=== PATIENT | female | born 1970 | race American Indian/Alaskan Native ===

== ENCOUNTER 2016-06-26 00:53 | Observation (INO) ==
--- NOTE | 2016-06-26 04:08 | Emergency Department Note ---
I, Olivia Valdez, am scribing for, and in the presence of, Mainor Dahl MD 01: 59. IHesham Kevin Lee, MD, personally performed the services described in this documentation, ascribed by Olivia Valdez in my presence, and it is both accurate and complete 408 . Arrival - Arrival Chief Complaint: Non-Specific Stated Complaint: RIGHT ARM NUMBNESS ED Nursing Triage Note: Patient is a transfer from [facility] for further evaluation of left arm and big toe numbness. CT is in xray. Mode of Arrival: Stretcher Limitations: No Limitations Source: Patient - History of Present Illness HPI Narrative: Pt is a 45 y/o female who came to ED by EMS from [facility] for further evaluation of left sided numbness and tingling that started yesterday. Pt notes she had weakness with sxs but now is resolved. Pt reports having mild numbness and tingling in left arm currently in ED. Pt's labs from [facility] are listed below: WBC: 4.5 CT head without contrast was also administered with nml results. Hemo.5 Lymphs: 30.8 PT: 9.8 INR: 0.95 Mean Nml: 10.3 BUN: 17 Sodium: 138 Potassium: 3.6 CO2: 27.3 CPK: 69.00 CK-MB: 0.4 Troponin: .08 Glucose: 267 Calcium: 8.4 Chloride: 102 EST GFR: >60 Myoglob: 28 Creatinine: .8 PBNP: 114.2 Onset (ago): hour(s) Consistency: constant Severity: moderate Severity scale (1-10): 5 Quality: other (numbness) Date of Last Menstrual Period: hysterectomy Allergies/Adverse Reactions: Allergies Allergy/AdvReac Type Severity Reaction Status Date / Time Erythromycin Base Allergy Severe RASH Verified 05/10/15 15:51 Home Medications: Home Medications Medication Instructions Recorded Confirmed Type Gabapentin Cap/Tab [Neurontin 600 mg PO BID 05/10/15 06/15/15 History Cap/Tab] Indomethacin Cap [Indocin Cap] 25 mg PO TID #12 capsule NS 05/10/15 06/15/15 Rx Insulin Detemir [Levemir FlexPen] 10 unit SUBCUT QAM 05/10/15 06/15/15 History Insulin Detemir [Levemir FlexPen] 30 unit SUBCUT BEDTIME 05/10/15 06/15/15 History Lisinopril 20 mg PO DAILY 05/10/15 06/15/15 History Metoprolol Succinate Xl [Toprol Xl] 25 mg PO DAILY 05/10/15 06/15/15 History Tizanidine HCl [Zanaflex] 2 mg PO Q6H #16 capsule 05/10/15 06/15/15 Rx glyBURIDE [Diabeta] 10 mg PO BID W/MEALS 05/10/15 06/15/15 History Gemfibrozil 600 mg PO BID 06/14/15 06/14/15 History Lisinopril 20 mg PO DAILY 06/14/15 06/14/15 History Metoprolol Succinate Xl [Toprol Xl] 25 mg PO DAILY 06/14/15 06/14/15 History glyBURIDE [Diabeta] 10 mg PO BID W/MEALS 06/14/15 06/14/15 History Review of System - Review of System 12 point system: reviewed and no additional remarkable complaints except as stated - Review of System Constitutional: Absent: chills, fever Respiratory: Absent: respiratory distress Cardiovascular: Absent: chest pain Gastrointestinal: Absent: abdominal pain Musculoskeletal: Absent: arm pain, leg pain, neck pain Skin: Absent: rash Neurological: Present: numbness (in left arm), paresthesias (great left toe) Medical,Surgical,& Family Hx - Medical History Cardio: History of: Hypertension Psychological: History of: Depression - Social History Smoking Status: Never smoker Frequency of Alcohol Use: None Type of Drug Use: None Exam Vital Signs: Vital Signs Temperature 97.1 F L 06/26/16 00:55 Pulse Rate 77 06/26/16 00:55 Respiratory Rate 20 06/26/16 00:55 Blood Pressure 132/88 06/26/16 00:55 O2 Sat by Pulse Oximetry 97 06/26/16 00:55 - General General appearance: alert, in no apparent distress - Head Head exam: Present: atraumatic, normocephalic - Eye Eye exam: Present: PERRL, EOMI - ENT ENT exam: Present: mucous membranes moist. Absent: mucous membranes dry - Neck Neck exam: Present: full ROM. Absent: tenderness - Chest Chest inspection: Present: symmetric chest wall rise. Absent: tenderness - Respiratory Respiratory exam: Present: normal lung sounds bilaterally. Absent: respiratory distress - Cardiovascular Cardiovascular exam: Present: regular rate, normal rhythm, normal heart sounds - Abdominal Exam Abdominal exam: Present: soft. Absent: tenderness - Extremities Exam Extremities exam: Present: full ROM. Absent: tenderness, pedal edema - Neurological Exam Neurological exam: Present: alert, oriented X3, CN II-XII intact. Absent: motor sensory deficit - Psychiatric Psychiatric exam: Present: normal affect, normal mood - Skin Skin exam: Present: warm, dry Results - Labs Lab Results: I have reviewed the patients labs (from [facility]) Disposition Clinical Impression: TIA (transient ischemic attack) Case discussed with: patient Disposition: Still a Patient Condition: Stable
--- NOTE | 2016-06-26 04:14 | Hospitalist History & Physical ---
History of Present Illness Chief complaint: Left and left leg numbness History of present illness: Pt is a 45 y/o female who came to ED by EMS from [facility] for further evaluation of left sided numbness and tingling that started yesterday. Pt notes she had weakness with sxs but now is resolved. Pt reports having mild numbness and tingling in left arm currently in ED. she is also reporting a lot of social stressors surrounding the fact that she is forced to take care of her grandchildren whose mother has basically left them there and walked away. Patient denies having had these symptoms before. Does have history of coronary artery disease history of diabetes and history of hypertension The symptoms that she presented with to the emergency room have since subsided she is able to move her left arm she does not feel any better sensation in the arm does not feel in the weakness of the leg but the big toe is cold and "numb. Able to move her left lower extremity too. Speech is not compromised. Home Medications Medication Instructions Recorded Confirmed Type Gabapentin Cap/Tab [Neurontin 600 mg PO BID 05/10/15 06/15/15 History Cap/Tab] Indomethacin Cap [Indocin Cap] 25 mg PO TID #12 capsule NS 05/10/15 06/15/15 Rx Insulin Detemir [Levemir FlexPen] 10 unit SUBCUT QAM 05/10/15 06/15/15 History Insulin Detemir [Levemir FlexPen] 30 unit SUBCUT BEDTIME 05/10/15 06/15/15 History Lisinopril 20 mg PO DAILY 05/10/15 06/15/15 History Metoprolol Succinate Xl [Toprol Xl] 25 mg PO DAILY 05/10/15 06/15/15 History Tizanidine HCl [Zanaflex] 2 mg PO Q6H #16 capsule 05/10/15 06/15/15 Rx glyBURIDE [Diabeta] 10 mg PO BID W/MEALS 05/10/15 06/15/15 History Gemfibrozil 600 mg PO BID 06/14/15 06/14/15 History Lisinopril 20 mg PO DAILY 06/14/15 06/14/15 History Metoprolol Succinate Xl [Toprol Xl] 25 mg PO DAILY 06/14/15 06/14/15 History glyBURIDE [Diabeta] 10 mg PO BID W/MEALS 06/14/15 06/14/15 History Allergies Allergy/AdvReac Type Severity Reaction Status Date / Time Erythromycin Base Allergy Severe RASH Verified 05/10/15 15:51 Medical,Surgical,& Family Hx - Medical History Cardio: History of: CAD, Hypertension Psychological: History of: Depression Endocrine: History of: Diabetes Mellitus (NIDDM) - Social History Smoking Status: Never smoker Frequency of Alcohol Use: None Type of Drug Use: None 12 point system: reviewed and no additional remarkable complaints except as stated (Patient states that she no longer has the numbness of the left upper extremity. She is able to talk to me in full statements without any limitation is not in any distress at this point) Exam - Constitutional Vitals: Period Temp Pulse Resp BP Sys/Alarcon Pulse Ox Last 24 Hr 97.1 F-97.1 F 77-77 20-20 132-132/88-88 97 General appearance: over weight, other (He is slightly older than stated age) - Head Head exam: Present: normocephalic, atraumatic - Eye Eye exam: Present: EOMI, other (There is clear no conjunctival petechia) Pupils: Present: JAYLEEN - ENT ENT exam: Present: normal oropharynx - Neck Neck exam: Present: other (Neck is supple midline trachea no JVD or bruits and neck) - Respiratory Respiratory exam: Present: clear to auscultation bilaterally, other (No wheezing no rales no rhonchi) - Cardiovascular Cardiovascular exam: Present: regular rate and rhythm (No gallops no murmur), other (No gallops no murmur) - GI/Abdominal GI/Abdominal exam: Present: normal bowel sounds, other (Soft slightly rotund no obvious hepatosplenomegaly) - Extremities Exam Extremities exam: Present: full ROM, other (Good handgrip on the left good coordination can move left lower extremity without any limitation) - Back Exam Back exam: Present: other (Back is symmetric) - Neurological Exam Neurological exam: Present: alert, oriented X3, CN II-XII intact, other (No focal neurologic deficit despite the presenting history) - Psychiatric Psychiatric exam: Present: normal affect, normal mood - Skin Skin exam: Present: normal color, warm, dry
--- NOTE | 2016-06-26 07:32 | Ultrasound Report ---
Referring physician: Kamari Painting Exam: Carotid ultrasound Date: June 26, 2016 Comparison: None Reason: TIA Technique: Duplex scan of the carotid arteries was performed using B-Mode/grayscale imaging and Doppler spectral analysis and color flow. Ultrasound images were captured and stored. Findings: There is mild calcified plaque at the carotid bifurcations. The right ICA measures 0.42 cm in diameter, and the left ICA measures 0.40 cm in diameter. The peak systolic velocities are as follows: Right CCA: 68 cm/s Right proximal ICA: 67 cm/s Right distal ICA: 91 cm/s Right ECA: 81 cm/s Left CCA: 56 cm/s Left proximal ICA: 54 cm/s Left distal ICA: 81 cm/s Left ECA: 73 cm/s The peak systolic ICA/CCA velocity ratios are as follows: 1.3 on the right and 1.5 on the left. Antegrade flow is present within both vertebral arteries. Impression: 1. Less than 50% stenosis of both cervical internal carotid arteries. 2. The Society of Radiologists in Ultrasound consensus conference criteria was used. The Ultrasound images were captured and stored. PROCEDURE INTERPRETED AT [facility] DEPARTMENT OF RADIOLOGY Final Report Signed by: Dr. Faye Wood
[2016-06-26] MEDS: INSULIN GLARGINE 100 UNIT/ML SUBCUT SCH (08:57)
[2016-06-26] MEDS: GEMFIBROZIL 600 MG TABLET PO SCH ×2 (08:57→20:51)
[2016-06-26] MEDS: glyBURIDE 5 MG TABLET PO SCH ×2 (08:57→16:25)
[2016-06-26] MEDS: METOPROLOL SUCCINATE XL 25 MG TABLET PO SCH (08:57)
[2016-06-26] MEDS: LISINOPRIL 20 MG TABLET PO SCH (08:58)
[2016-06-26] MEDS ORDERED: GLUCAGON 1 MG VIAL IM PRN (09:41)
[2016-06-26] MEDS ORDERED: DEXTROSE 50% 25 GM/50 ML VIAL IV PRN (09:41)
[2016-06-26] MEDS: INSULIN LISPRO 100 UNIT/ML SUBCUT SCH ×3 (11:41→20:53)
[2016-06-26] MEDS ORDERED: ACETAMINOPHEN 325 MG TABLET PO PRN (13:45)
--- NOTE | 2016-06-26 13:56 | Magnetic Resonance Report ---
Referring physician: Kamari Painting Exam: MRI cervical spine with and without contrast Date: June 26, 2016 Comparison: None Reason: Left arm pain, paresthesia Technique: MRI of the cervical spine was performed with and without the use of 15 cc of Dotarem IV contrast. Obtained precontrast sequences include sagittal T2, sagittal STIR, sagittal T1, axial T2, axial T1 and axial T2* gradient sequences. Postcontrast axial and sagittal T1 fat-sat sequences were also acquired. A 1.2 Soraya open magnet was used. Findings: The cervical vertebral bodies are normal in height, and sagittal alignment is within normal limits. There is multilevel disc desiccation, and minimal disc space narrowing is seen at C4-C5. The visualized spinal cord demonstrates normal signal and size. At C2-C3, there is mild left neuroforaminal narrowing secondary to uncovertebral hypertrophy. No spinal canal stenosis is seen. At C3-C4, there is a small broad-based disc posterior disc protrusion in the left paracentral region and uncovertebral hypertrophy. This minimally displaces the spinal cord and produces narrowing of the left lateral recess. There is mild overall narrowing of the spinal canal, moderate left neuroforaminal narrowing and mild right neuroforaminal narrowing. At C4-C5, there is a mild diffuse posterior disc bulge, uncovertebral hypertrophy uncovertebral hypertrophy and slight prominence of the ligamentum flavum. This produces mild narrowing of the spinal canal, mild left neuroforaminal narrowing and moderate right neuroforaminal narrowing. At C5-C6, there is a mild diffuse posterior disc bulge, uncovertebral hypertrophy and mild prominence of the ligamentum flavum. This produces mild overall narrowing of the spinal canal but no significant neuroforaminal narrowing. At C6-C7, there is a mild diffuse posterior disc bulge, uncovertebral hypertrophy and slight prominence of the ligamentum flavum. This produces minimal overall narrowing of the spinal canal, mild right neuroforaminal narrowing and moderate left neuroforaminal narrowing. At C7-T1, No spinal canal stenosis or neuroforaminal narrowing is identified. No suspicious enhancement is seen. There is diffuse mucosal thickening within both maxillary sinuses. Impression: Multilevel degenerative change at the cervical spine as described above. PROCEDURE INTERPRETED AT [facility] DEPARTMENT OF RADIOLOGY Final Report Signed by: Dr. Faye Wood
--- NOTE | 2016-06-26 14:39 | ECHO Report ---
Nelly Calabrese Exam Date: 06/26/2016 09:20 Referring Physician: Technologist: Scotty CALL Age: 45 Ht (in): Wt (lb): Gender: F Exam Location: [facility] Echo Indications: TIA, Chest pain BP: / HR: Rhythm: Sinus Technical Quality: Technically difficult study IMPRESSIONS Technically difficult study. EF 55 %. Normal right ventricular size. Normal right atrial size. Normal left atrial size. Morphologically normal mitral valve. No mitral valve regurgit No aortic valve regurgitation. Aortic valve sclerosis. Morphologically normal tricuspid valve. PAP35- 40 mmHG. Morphologically normal pulmonic valve. No pericardial effusion. Normal size aortic root and proximal ascending aorta. No LV or LA clot seen. MEASUREMENTS (Male / Female) Normal Values 2D ECHO LV Diastolic Diameter PLAX 4.4 cm 4.2 - 5.9 / 3.9 - 5.3 cm LV Systolic Diameter PLAX 3.0 cm LV Fractional Shortening PLAX 31.5 % IVS Diastolic Thickness 1.2 cm 0.6 - 1.0 / 0.6 - 0.9 cm LVPW Diastolic Thickness 1.1 cm 0.6 - 1.0 / 0.6 - 0.9 cm RV Internal Dim ED PLAX 2.3 cm Aortic Root Diameter 2.9 cm LA Systolic Diameter LX 3.2 cm 3.0 - 4.0 / 2.7 - 3.8 cm DOPPLER TR Peak Velocity 111.0 cm/s TR Peak Gradient 4.9 mmHg FINDINGS Left Ventricle EF 55 %. Right Ventricle Normal right ventricular size. Right Atrium Normal right atrial size. Left Atrium Normal left atrial size. Mitral Valve Morphologically normal mitral valve. No mitral valve regurgitation. Aortic Valve Aortic valve sclerosis. No aortic valve regurgitation. Tricuspid Valve Mild tricuspid valve regurgitation. Morphologically normal tricuspid valve.PAP35- 40 mmHG. Pulmonic Valve Morphologically normal pulmonic valve. Pericardium No pericardial effusion. Aorta Normal size aortic root and proximal ascending aorta. Peter Ellison (Electronically Signed) Final Date: 26 June 2016 14:38
[2016-06-26] MEDS ORDERED: INSULIN GLARGINE 100 UNIT/ML SUBCUT SCH (21:00)
[2016-06-26] MEDS: ASPIRIN EC 325 MG TABLET PO SCH (23:16)
[2016-06-27 06:38] LABS: Calcium 8.8 MG/DL (8.5-10.1); Magnesium 1.6 MG/DL (1.8-2.4); Osmolality,Calculated 289.1 MOS/KG (273-304); Potassium 3.8 MMOL/L (3.5-5.1)
[2016-06-27] MEDS: INSULIN GLARGINE 100 UNIT/ML SUBCUT SCH (09:13)
[2016-06-27] MEDS: ASPIRIN EC 325 MG TABLET PO SCH (09:13)
[2016-06-27] MEDS: glyBURIDE 5 MG TABLET PO SCH (09:13)
[2016-06-27] MEDS: GEMFIBROZIL 600 MG TABLET PO SCH (09:13)
[2016-06-27] MEDS: LISINOPRIL 20 MG TABLET PO SCH (09:13)
[2016-06-27] MEDS: INSULIN LISPRO 100 UNIT/ML SUBCUT SCH ×2 (09:14→11:23)
[2016-06-27] MEDS: METOPROLOL SUCCINATE XL 25 MG TABLET PO SCH (09:17)
[2016-06-27 09:57] VITALS: BP 141/78
--- NOTE | 2016-06-27 10:06 | Discharge Summary ---
Hospital Course - Hospital Course Hospital Course: The patient was admitted to the hospital with paresthesias weakness and tingling in the left arm in an ulnar nerve distribution. The patient had no evidence of stroke on CT scan of brain. The patient had no significant stenoses of the carotid arteries. MRI scan of the cervical spine revealed multilevel cervical disc disease with foraminal narrowing in the distribution which might cause her ulnar nerve symptoms. The patient's symptoms are stable and improving slowly with rest. I am recommending that the patient had physical therapy for her neck at the [facility] and have neurosurgical consultation. We have no neurosurgical store sales consultant here at [facility] so the patient will likely need Dr. Banuelos to refer her to [facility] - Time spent with patient Time with patient DS: Greater than 30 minutes Diagnosis - Discharge Diagnosis (1) Left arm weakness Status: Chronic (2) Left arm numbness Status: Chronic (3) Cervical disc disease Status: Chronic Discharge Plan - Discharge Data Disposition: Disch To Home/Self Care Condition at Discharge: Stable Discharge Diet: advance to your usual diet Activity: resume usual activities as tolerated - Discharge Medications Continue Metoprolol Succinate Xl [Toprol Xl] 25 mg PO DAILY Lisinopril 20 mg PO DAILY Gabapentin Cap/Tab [Neurontin Cap/Tab] 600 mg PO BID Insulin Detemir [Levemir FlexPen] 10 unit SUBCUT QAM Insulin Detemir [Levemir FlexPen] 30 unit SUBCUT BEDTIME Indomethacin Cap [Indocin Cap] 25 mg PO TID #12 capsule NS Tizanidine HCl [Zanaflex] 2 mg PO Q6H #16 capsule Gemfibrozil 600 mg PO BID glyBURIDE [Diabeta] 10 mg PO BID W/MEALS Metoprolol Succinate Xl [Toprol Xl] 25 mg PO DAILY Lisinopril 20 mg PO DAILY Discontinued glyBURIDE [Diabeta] 10 mg PO BID W/MEALS - Follow Up or Referral Follow Up: Josh Brady [PROVISIONAL] - 1 Week (See Dr. Brady at [facility] for neurosurgical consult ; left sided arm radiculopathy due to cervical disc disease; see MR) PhysicalTherapy,[facility] [Other] - 3 Days (patient needs therapy for cervical disc disease causing left arm symptoms.) - Forms/Instructions Exam - Constitutional Vitals: Period Temp Pulse Resp BP Sys/Alarcon Pulse Ox Last 24 Hr 97.9 F-98.7 F 67-79 18-20 109-141/70-80 94-96 Discharge Results Labs on day of discharge: Labs from last 24 hours 06/27/16 06/27/16 06/26/16 07:39 05:11 19:18 Sodium 142 Potassium 3.8 Chloride 105 Carbon Dioxide 27 Anion Gap 13.8 BUN 11 Creatinine 0.60 GFR Calculation 114 BUN/Creatinine Ratio 18.00 Glucose 242 H POC Glucose 243 H 271 H Calculated Osmolality 289.1 Calcium 8.8 Magnesium 1.6 L 06/26/16 06/26/16 06/26/16 15:38 12:10 11:02 Sodium Potassium Chloride Carbon Dioxide Anion Gap BUN 13 Creatinine 0.80 GFR Calculation 92 BUN/Creatinine Ratio Glucose POC Glucose 249 H 220 H Calculated Osmolality Calcium Magnesium DS: Provider Date of admission: 06/26/16 04:29 Primary care physician: Rodrigo Ariza MD Attending physician on admission: Kamari Painting MD Consults: 06/26/16 09:41 Consult to Physician [CONS] Routine Comment: left arm pain, parasthesia Consulting Provider: Parish Love Discharging clinician: Kamari Painting MD
== END 2016-06-27 13:28 | disposition home or self-care (01) ==
LOC: EDBD → EDUNIT# → N.ED 00:53 → N.EDINP 00:53 → N.2E 04:52
PROVIDERS: ADMIT Internal Medicine; ATTEND Internal Medicine

== ENCOUNTER 2018-01-11 13:32 | Inpatient (IN) ==
[2018-01-11] MEDS ORDERED: ONDANSETRON 4 MG/2 ML VIAL IV PRN (16:59)
[2018-01-11] MEDS ORDERED: BISACODYL 10 MG SUPP RECTAL PRN (16:59)
[2018-01-11] MEDS ORDERED: BISACODYL 5 MG TABLET PO PRN (16:59)
[2018-01-11] MEDS ORDERED: HYDROmorphone 2 MG/1 ML VIAL IV PRN (16:59)
[2018-01-11] MEDS ORDERED: ALUMINUM/MAGNES/SIMETH MAX STR 30 ML UDCUP PO PRN (16:59)
[2018-01-11] MEDS ORDERED: ACETAMINOPHEN 325 MG TABLET PO PRN (16:59)
[2018-01-11] MEDS ORDERED: GLUCAGON 1 MG VIAL IM PRN (17:19)
[2018-01-11] MEDS ORDERED: DEXTROSE 50% 25 GM/50 ML VIAL IV PRN (17:19)
[2018-01-11] MEDS ORDERED: POTASSIUM CHLORIDE 20 MEQ TABLET PO PRN (17:26)
[2018-01-11] MEDS ORDERED: CLINDAMYCIN INJ 50 ML IV ONE (18:12)
[2018-01-11] MEDS: CLINDAMYCIN INJ 900 MG in PREMIX 1 EACH IV SCH ×2 (18:17→23:25)
[2018-01-11 18:20] LABS: Basophils % 0.3 % (0.0-0.8); Eosinophils # 0.2 10*3/uL (0.0-0.87); Eosinophils % 2.4 % (0.00-10.9); Hemoglobin 11.3 GM/DL (12.0-16.0); Immature Granulocytes % 0.7 %; Immature Granulocytes Absolute 0.04 #; Lymphocytes # 1.6 10*3/uL (1.4-4.0); Lymphocytes % 26.7 % (21.3-54.2); Mean Corpuscular HGB Conc 35.3 GM/DL (32-36); Mean Corpuscular Hemoglobin 29 PG (27-34); Mean Corpuscular Volume 82.9 FL (87-102); Mean Platelet Volume 8.8 FL (9.6-12.0); Monocytes # 0.5 10*3/uL (0.11-0.8); Monocytes % 7.8 % (1.7-12.7); Neutrophils # 3.8 10*3/uL (1.4-7.4); Neutrophils % 62.1 % (38.7-73.9); Platelet Count 326 T/CUMM (130-400); Red Blood Count 3.86 MC/CUMM (3.8-5.5); Red Cell Distribution Width 12.1 % (9.3-17.3); White Blood Count 6.1 T/CUMM (4-12)
[2018-01-11 18:38] LABS: Albumin 2.8 G/DL (3.4-5.0); Bilirubin,Total 0.4 MG/DL (0.2-1.0); Calcium 8.2 MG/DL (8.5-10.1); Osmolality,Calculated 286.7 MOS/KG (273-304); Potassium 3.5 MMOL/L (3.5-5.1); Total Protein 6.5 G/DL (6.4-8.3)
[2018-01-11] MEDS ORDERED: CLINDAMYCIN INJ 600 MG in PREMIX 1 EACH IV SCH (19:00)
[2018-01-11] MEDS: INSULIN LISPRO 100 UNIT/ML SUBCUT SCH (20:46)
[2018-01-11] MEDS: PANTOPRAZOLE 40 MG TABLET PO SCH (20:47)
[2018-01-11] MEDS: DOCUSATE SODIUM 100 MG CAPSULE PO SCH (20:47)
[2018-01-11] MEDS: LACTATED RINGERS 1,000 ML IV SCH (20:48)
[2018-01-12] MEDS: CLINDAMYCIN INJ 900 MG in PREMIX 1 EACH IV SCH ×3 (05:10→19:08)
[2018-01-12] MEDS: LACTATED RINGERS 1,000 ML IV SCH ×3 (05:10→22:40)
[2018-01-12 08:47] LABS: Basophils % 0.4 % (0.0-0.8); Eosinophils # 0.1 10*3/uL (0.0-0.87); Eosinophils % 2.4 % (0.00-10.9); Hematocrit 29.4 VOL% (35.7-47.0); Hemoglobin 10.4 GM/DL (12.0-16.0); Immature Granulocytes % 0.5 %; Immature Granulocytes Absolute 0.03 #; Lymphocytes # 1.2 10*3/uL (1.4-4.0); Lymphocytes % 21.7 % (21.3-54.2); Mean Corpuscular HGB Conc 35.4 GM/DL (32-36); Mean Corpuscular Hemoglobin 29 PG (27-34); Mean Corpuscular Volume 82.1 FL (87-102); Mean Platelet Volume 8.8 FL (9.6-12.0); Monocytes # 0.5 10*3/uL (0.11-0.8); Monocytes % 8.9 % (1.7-12.7); Neutrophils # 3.7 10*3/uL (1.4-7.4); Neutrophils % 66.1 % (38.7-73.9); Platelet Count 306 T/CUMM (130-400); Red Blood Count 3.58 MC/CUMM (3.8-5.5); Red Cell Distribution Width 11.9 % (9.3-17.3); White Blood Count 5.5 T/CUMM (4-12)
[2018-01-12] MEDS: DOCUSATE SODIUM 100 MG CAPSULE PO SCH ×2 (09:00→21:12)
[2018-01-12] MEDS ORDERED: LISINOPRIL 20 MG TABLET PO SCH ×2 (09:00→11:47)
[2018-01-12 09:14] LABS: Calcium 8.1 MG/DL (8.5-10.1); Osmolality,Calculated 285.7 MOS/KG (273-304); Potassium 3.7 MMOL/L (3.5-5.1)
[2018-01-12] MEDS: INSULIN LISPRO 100 UNIT/ML SUBCUT SCH ×4 (10:11→21:12)
[2018-01-12] MEDS: METOPROLOL SUCCINATE XL 25 MG TABLET PO SCH (10:12)
[2018-01-12] MEDS ORDERED: LIDOCAINE 1%/EPI INJ 20 ML VIAL ONE (11:42)
[2018-01-12] MEDS ORDERED: MAGNESIUM SULF RIDER 2 GM in PREMIX 1 EACH IV ONE (11:46)
[2018-01-12] MEDS ORDERED: SEVOFLURANE 1 UNIT/15 MINUTE INH ONE (13:04)
[2018-01-12] MEDS ORDERED: PROPOFOL 200 MG/20 ML VIAL IV ONE (13:04)
[2018-01-12] MEDS ORDERED: MIDAZOLAM 2 MG/2 ML VIAL ONE (13:05)
[2018-01-12] MEDS ORDERED: fentaNYL 100 MCG/2 ML VIAL ONE (13:05)
[2018-01-12] MEDS ORDERED: PHENYLEPHRINE 1 MG/10 ML SYRINGE IV ONE (13:05)
[2018-01-12] MEDS ORDERED: HYDROmorphone 2 MG/1 ML VIAL IV PRN (13:11)
[2018-01-12] MEDS ORDERED: ONDANSETRON 4 MG/2 ML VIAL IV PRN (13:11)
[2018-01-12] MEDS ORDERED: HYDROmorphone 2 MG/1 ML VIAL ONE (13:31)
[2018-01-12] MEDS ORDERED: ONDANSETRON 4 MG/2 ML VIAL ONE (13:31)
[2018-01-12] MEDS ORDERED: DEXTROSE 50% 25 GM/50 ML VIAL IV PRN (16:36)
[2018-01-12] MEDS ORDERED: GLUCAGON 1 MG VIAL IM PRN (16:36)
[2018-01-12] MEDS: PANTOPRAZOLE 40 MG TABLET PO SCH (16:45)
[2018-01-12] MEDS: ASPIRIN EC 81 MG TABLET PO SCH (16:45)
[2018-01-13] MEDS: CLINDAMYCIN INJ 900 MG in PREMIX 1 EACH IV SCH ×3 (00:39→12:18)
[2018-01-13] MEDS ORDERED: MAGNESIUM OXIDE 400 MG TABLET PO SCH (09:00)
[2018-01-13] MEDS: INSULIN LISPRO 100 UNIT/ML SUBCUT SCH ×3 (09:27→16:47)
[2018-01-13] MEDS: LACTATED RINGERS 1,000 ML IV SCH (09:27)
[2018-01-13] MEDS: DOCUSATE SODIUM 100 MG CAPSULE PO SCH (09:28)
[2018-01-13] MEDS: ASPIRIN EC 81 MG TABLET PO SCH (09:28)
[2018-01-13] MEDS: PANTOPRAZOLE 40 MG TABLET PO SCH (09:29)
[2018-01-13] MEDS: METOPROLOL SUCCINATE XL 25 MG TABLET PO SCH (09:29)
[2018-01-13 10:21] LABS: Basophils % 0.2 % (0.0-0.8); Eosinophils # 0.1 10*3/uL (0.0-0.87); Eosinophils % 1.6 % (0.00-10.9); Hematocrit 29.1 VOL% (35.7-47.0); Hemoglobin 10.1 GM/DL (12.0-16.0); Immature Granulocytes % 0.6 %; Immature Granulocytes Absolute 0.03 #; Lymphocytes # 0.9 10*3/uL (1.4-4.0); Lymphocytes % 18.3 % (21.3-54.2); Mean Corpuscular HGB Conc 34.7 GM/DL (32-36); Mean Corpuscular Hemoglobin 29 PG (27-34); Mean Corpuscular Volume 83.9 FL (87-102); Mean Platelet Volume 8.9 FL (9.6-12.0); Monocytes # 0.4 10*3/uL (0.11-0.8); Monocytes % 8.1 % (1.7-12.7); Neutrophils # 3.6 10*3/uL (1.4-7.4); Neutrophils % 71.2 % (38.7-73.9); Platelet Count 283 T/CUMM (130-400); Red Blood Count 3.47 MC/CUMM (3.8-5.5); Red Cell Distribution Width 12.3 % (9.3-17.3); White Blood Count 5.1 T/CUMM (4-12)
[2018-01-13 10:55] LABS: Calcium 7.5 MG/DL (8.5-10.1); Osmolality,Calculated 285.8 MOS/KG (273-304)
[2018-01-13 16:33] VITALS: BP 131/80
[2018-01-13] MEDS ORDERED: INSULIN GLARGINE 100 UNIT/ML SUBCUT SCH ×2 (21:00)
[2018-01-14] MEDS ORDERED: sitaGLIPtin 100 MG TABLET PO SCH (09:00)
[2018-01-14] MEDS ORDERED: CLOPIDOGREL 75 MG TABLET PO SCH (09:00)
== END 2018-01-13 17:05 | disposition home or self-care (01) | DRG 623 ==
LOC: N.ED 13:32 → N.EDINP 16:59 → N.3E 18:15
PROVIDERS: ADMIT Surgery; ATTEND Surgery

== ENCOUNTER 2021-02-10 05:27 | Inpatient (IN) ==
[2021-02-10] MEDS ORDERED: FAMOTIDINE 20 MG TABLET PO ONE (06:00)
[2021-02-10] MEDS ORDERED: VANCOMYCIN INJ 1,000 MG in SODIUM CHLORIDE 0.9% 250 ML IV ONE (06:00)
[2021-02-10] MEDS ORDERED: GABAPENTIN 400 MG CAPSULE PO ONE (06:00)
[2021-02-10] MEDS ORDERED: ACETAMINOPHEN 500 MG TABLET PO ONE (06:00)
[2021-02-10] MEDS ORDERED: LIDOCAINE 1% 5 ML VIAL ONE (06:05)
[2021-02-10] MEDS ORDERED: ROPIVACAINE 0.5% 30 ML VIAL ONE (06:05)
[2021-02-10] MEDS ORDERED: DEXMEDETOMIDINE 200 MCG/2 ML VIAL ONE (06:05)
[2021-02-10] MEDS ORDERED: DEXAMETHASONE 4 MG/1 ML VIAL ONE (06:05)
[2021-02-10] MEDS ORDERED: BUPIVACAINE SPINAL 0.75% 2 ML AMP SPINAL ONE (06:26)
[2021-02-10] MEDS ORDERED: INSULIN REGULAR 100 UNIT/ML IV ONE (06:32)
[2021-02-10] MEDS: LACTATED RINGERS 1,000 ML IV SCH ×2 (06:44→10:23)
[2021-02-10] MEDS ORDERED: MIDAZOLAM 2 MG/2 ML VIAL ONE (07:03)
[2021-02-10] MEDS ORDERED: TEMAZEPAM 7.5 MG CAPSULE PO PRN (07:23)
[2021-02-10] MEDS ORDERED: LACTULOSE 20 GM/30 ML UDCUP PO PRN (07:23)
[2021-02-10] MEDS ORDERED: BISACODYL 10 MG SUPP RECTAL PRN (07:23)
[2021-02-10] MEDS ORDERED: MAGNESIUM HYDROXIDE SUSP 30 ML UDCUP PO PRN (07:23)
[2021-02-10] MEDS ORDERED: PROMETHAZINE 25 MG/1 ML VIAL IM PRN (07:23)
[2021-02-10] MEDS ORDERED: diphenhydrAMINE CAP 25 MG CAPSULE PO PRN (07:23)
[2021-02-10] MEDS ORDERED: ALUMINUM/MAGNES/SIMETH MAX STR 30 ML UDCUP PO PRN (07:25)
[2021-02-10] MEDS ORDERED: DOCUSATE SODIUM 100 MG CAPSULE PO PRN (07:25)
[2021-02-10] MEDS ORDERED: DEXTROSE 50% 25 GM/50 ML VIAL IV PRN ×2 (07:27→14:17)
[2021-02-10] MEDS ORDERED: GLUCAGON 1 MG VIAL IM PRN ×2 (07:27→14:17)
[2021-02-10] MEDS ORDERED: LABETALOL 20 MG/4 ML SYRINGE IV ONE (07:54)
[2021-02-10] MEDS ORDERED: hydrALAZINE 20 MG/1 ML VIAL ONE ×2 (08:03→08:04)
[2021-02-10] MEDS ORDERED: PHENYLEPHRINE 10 MG/1 ML VIAL IV ONE (08:16)
[2021-02-10] MEDS ORDERED: amLODIPine 5 MG TABLET PO SCH (09:00)
[2021-02-10 09:37] LABS: Bacteria,Urine Occasional /HPF (Few); Bilirubin,Urine Negative (Negative); Blood, Urine Small mg/dL (Negative); Glucose,Urine (UA) >=500 mg/dL (Negative); Hyaline Casts,Urine 4 /LPF (0-3); Ketones,Urine Negative (Negative); Mucus,Urine Occasional /LPF (Occasional); Nitrite,Urine Negative (Negative); Protein,Urine Negative; RBC,Urine 1 /HPF (0-4); Squamous Epithelial Cell,Urine Occasional /HPF (0-10); Urine Appearance CLEAR (Clear); Urine Color Straw (Yellow); Urine Specific Gravity 1.016 (1.001-1.035); Urine Urobilinogen < 2.0 EU/DL (0.2-1.0)
[2021-02-10] MEDS ORDERED: ONDANSETRON 4 MG/2 ML VIAL ONE (12:00)
[2021-02-10] MEDS: ONDANSETRON 4 MG/2 ML VIAL IV PRN ×2 (12:03→20:05)
[2021-02-10] MEDS ORDERED: MORPHINE 2 MG/1 ML SYRINGE IV PRN (12:25)
[2021-02-10] MEDS: GABAPENTIN 300 MG CAPSULE PO SCH ×2 (14:09→21:16)
[2021-02-10] MEDS: MORPHINE 2 MG/1 ML SYRINGE IV PRN (15:29)
[2021-02-10] MEDS: CIPROFLOXACIN 500 MG TABLET PO SCH (16:04)
[2021-02-10] MEDS: INSULIN REGULAR 100 UNIT/ML SUBCUT SCH ×3 (16:04→22:00)
[2021-02-10] MEDS: INSULIN LISPRO 100 UNIT/ML SUBCUT SCH (16:04)
[2021-02-10] MEDS: SODIUM CHLORIDE 0.9% 1,000 ML IV SCH (19:24)
[2021-02-10 19:46] LABS: Alanine Aminotransferase 20 U/L (13-56); Albumin 2.9 G/DL (3.4-5.0); Alkaline Phosphatase 92 U/L (45-117); Aspartate Amino Transferase 25 U/L (0-37); Bilirubin,Total < 0.39 MG/DL (0.20-1.00); Blood Urea Nitrogen 25 MG/DL (7-18); Carbon Dioxide 21 MMOL/L (21-32); Estimated Glom Filtration Rate 33 ML/MIN; Sodium 131 MMOL/L (136-145); Total Protein 6.4 G/DL (6.4-8.2)
[2021-02-10 19:48] LABS: Glucose 552 MG/DL (74-106); Osmolality,Calculated 290.7 MOS/KG (273-304)
[2021-02-10 20:04] LABS: Basophils % 0.1 % (0.0-0.8); Hematocrit 24.8 VOL% (35.7-47.0); Hemoglobin 8.3 GM/DL (12.0-16.0); Immature Granulocytes % 0.5 %; Immature Granulocytes Absolute 0.06 #; Lymphocytes # 0.4 10*3/uL (1.4-4.0); Lymphocytes % 3.2 % (21.3-54.2); Mean Corpuscular HGB Conc 33.5 GM/DL (32-36); Mean Corpuscular Volume 86.1 FL (87-102); Mean Platelet Volume 9.7 FL (9.6-12.0); Monocytes % 5.7 % (1.7-12.7); Neutrophils % 90.5 % (38.7-73.9); Platelet Count 131 T/CUMM (130-400); Red Blood Count 2.88 MC/CUMM (3.8-5.5); Red Cell Distribution Width 12.8 % (9.3-17.3); White Blood Count 10.9 T/CUMM (4-12)
[2021-02-10 20:38] LABS: Lymphocytes 5 % (20-55); Platelet Estimate Normal; Segmented Neutrophils 95 % (50-85); Total Cells Counted 100
[2021-02-10 20:43] LABS: ABG Base Excess -5.4 MMOL/L (-2.5-2.5); ABG HCO3 19.8 MMOL/L (20-26); ABG Oxygen Saturation 89.8 % (95-100); ABG PCO2 48.3 MM HG (35-48); ABG PH 7.259 (7.35-7.45); ABG PO2 63.1 MM HG (80-95); ABG TCO2 20.3 MMOL/L (23-27)
[2021-02-10] MEDS: DOCUSATE SODIUM 100 MG CAPSULE PO SCH (21:15)
[2021-02-10] MEDS: INSULIN GLARGINE 100 UNIT/ML SUBCUT SCH (21:16)
[2021-02-10] MEDS: FONDAPARINUX 2.5 MG/0.5 ML SYRINGE SUBCUT SCH (21:16)
[2021-02-11] MEDS: INSULIN REGULAR 100 UNIT/ML SUBCUT SCH ×5 (01:05→22:22)
[2021-02-11 01:30] LABS: Bilirubin,Urine Negative (Negative); Blood, Urine Small mg/dL (Negative); Glucose,Urine (UA) >=500 mg/dL (Negative); Granular Casts,Urine 1 /LPF (0-1); Hyaline Casts,Urine 4 /LPF (0-3); Ketones,Urine Negative (Negative); Mucus,Urine Occasional /LPF (Occasional); Nitrite,Urine Negative (Negative); Protein,Urine Negative; RBC,Urine 2 /HPF (0-4); Squamous Epithelial Cell,Urine Occasional /HPF (0-10); Urine Appearance Slightly Hazy (Clear); Urine Color Yellow (Yellow); Urine Urobilinogen < 2.0 EU/DL (0.2-1.0)
[2021-02-11 06:55] LABS: Basophils % 0.2 % (0.0-0.8); Hematocrit 22.3 VOL% (35.7-47.0); Hemoglobin 7.4 GM/DL (12.0-16.0); Immature Granulocytes % 1.7 %; Immature Granulocytes Absolute 0.14 #; Lymphocytes # 0.6 10*3/uL (1.4-4.0); Lymphocytes % 6.9 % (21.3-54.2); Mean Corpuscular HGB Conc 33.2 GM/DL (32-36); Mean Corpuscular Volume 87.5 FL (87-102); Mean Platelet Volume 10.4 FL (9.6-12.0); Monocytes % 10.9 % (1.7-12.7); Neutrophils % 80.3 % (38.7-73.9); Platelet Count 134 T/CUMM (130-400); Red Blood Count 2.55 MC/CUMM (3.8-5.5); Red Cell Distribution Width 12.7 % (9.3-17.3); White Blood Count 8.4 T/CUMM (4-12)
[2021-02-11 07:20] LABS: Band Neutrophils 1 % (0-10); Hypochromasia 1+; Lymphocytes 8 % (20-55); Microcytosis 1+; Segmented Neutrophils 84 % (50-85); Total Cells Counted 100
[2021-02-11 07:21] LABS: Platelet Estimate Adequate
[2021-02-11 07:39] LABS: Potassium 5.2 MMOL/L (3.5-5.1)
[2021-02-11 07:52] LABS: Risk Ratio 1.93; VLDL Cholesterol 16.6 MG/DL
[2021-02-11] MEDS: ASPIRIN EC 81 MG TABLET PO SCH (08:35)
[2021-02-11] MEDS: CIPROFLOXACIN 500 MG TABLET PO SCH ×2 (08:35→16:45)
[2021-02-11] MEDS: DOCUSATE SODIUM 100 MG CAPSULE PO SCH ×2 (08:35→21:32)
[2021-02-11] MEDS: GABAPENTIN 300 MG CAPSULE PO SCH ×3 (08:35→21:33)
[2021-02-11] MEDS: MAGNESIUM OXIDE 400 MG TABLET PO SCH (08:35)
[2021-02-11] MEDS: INSULIN LISPRO 100 UNIT/ML SUBCUT SCH ×3 (08:35→16:45)
[2021-02-11] MEDS: ROSUVASTATIN 10 MG TABLET PO SCH (08:35)
[2021-02-11] MEDS: CLOPIDOGREL 75 MG TABLET PO SCH (08:35)
[2021-02-11] MEDS: METOPROLOL SUCCINATE XL 25 MG TABLET PO SCH (08:35)
[2021-02-11] MEDS: sitaGLIPtin 100 MG TABLET PO SCH (08:35)
[2021-02-11] MEDS ORDERED: SODIUM CHLORIDE 0.9% 1,000 ML IV PRN (08:39)
[2021-02-11] MEDS: SODIUM CHLORIDE 0.9% 1,000 ML IV SCH ×3 (08:41→17:30)
[2021-02-11] MEDS ORDERED: lisinopriL 10 MG TABLET PO SCH (09:00)
[2021-02-11] MEDS ORDERED: SODIUM ZIRCONIUM CYCLOSILICATE 10 GM PACK PO SCH (09:00)
[2021-02-11] MEDS ORDERED: SODIUM ZIRCONIUM CYCLOSILICATE 10 GM PACK PO ONE (09:00)
[2021-02-11] MEDS: FONDAPARINUX 2.5 MG/0.5 ML SYRINGE SUBCUT SCH (21:32)
[2021-02-11] MEDS: INSULIN GLARGINE 100 UNIT/ML SUBCUT SCH (21:32)
[2021-02-12] MEDS: SODIUM CHLORIDE 0.9% 1,000 ML IV SCH (02:55)
[2021-02-12 05:49] LABS: Basophils % 0.3 % (0.0-0.8); Eosinophils # 0.1 10*3/uL (0.0-0.87); Eosinophils % 1.7 % (0.00-10.9); Hematocrit 23.7 VOL% (35.7-47.0); Hemoglobin 7.7 GM/DL (12.0-16.0); Immature Granulocytes % 0.4 %; Immature Granulocytes Absolute 0.03 #; Lymphocytes # 1.2 10*3/uL (1.4-4.0); Lymphocytes % 16.2 % (21.3-54.2); Mean Corpuscular HGB Conc 32.5 GM/DL (32-36); Mean Corpuscular Volume 87.8 FL (87-102); Mean Platelet Volume 10.6 FL (9.6-12.0); Monocytes % 10.6 % (1.7-12.7); Neutrophils % 70.8 % (38.7-73.9); Platelet Count 103 T/CUMM (130-400); Red Cell Distribution Width 13.2 % (9.3-17.3); White Blood Count 7.5 T/CUMM (4-12)
[2021-02-12 06:13] LABS: Albumin 2.3 G/DL (3.4-5.0); Bilirubin,Total 0.5 MG/DL (0.20-1.00); Calcium 7.6 MG/DL (8.5-10.1); Osmolality,Calculated 291.5 MOS/KG (273-304); Potassium 4.2 MMOL/L (3.5-5.1); Total Protein 5.6 G/DL (6.4-8.2)
[2021-02-12] MEDS: INSULIN REGULAR 100 UNIT/ML SUBCUT SCH ×4 (08:12→22:05)
[2021-02-12] MEDS: sitaGLIPtin 100 MG TABLET PO SCH (08:55)
[2021-02-12] MEDS: ASPIRIN EC 81 MG TABLET PO SCH (08:55)
[2021-02-12] MEDS: CLOPIDOGREL 75 MG TABLET PO SCH (08:55)
[2021-02-12] MEDS: INSULIN LISPRO 100 UNIT/ML SUBCUT SCH ×3 (08:56→16:30)
[2021-02-12] MEDS: METOPROLOL SUCCINATE XL 25 MG TABLET PO SCH (08:56)
[2021-02-12] MEDS: CIPROFLOXACIN 500 MG TABLET PO SCH ×2 (08:56→16:53)
[2021-02-12] MEDS: GABAPENTIN 300 MG CAPSULE PO SCH ×2 (08:56→21:55)
[2021-02-12] MEDS: MAGNESIUM OXIDE 400 MG TABLET PO SCH (08:56)
[2021-02-12] MEDS: ROSUVASTATIN 10 MG TABLET PO SCH (08:56)
[2021-02-12] MEDS: DOCUSATE SODIUM 100 MG CAPSULE PO SCH ×2 (08:56→21:55)
[2021-02-12] MEDS ORDERED: SODIUM CHLORIDE 0.9% 1,000 ML IV PRN (12:18)
[2021-02-12] MEDS: INSULIN GLARGINE 100 UNIT/ML SUBCUT SCH (21:56)
[2021-02-12] MEDS: FONDAPARINUX 2.5 MG/0.5 ML SYRINGE SUBCUT SCH (21:56)
[2021-02-12] MEDS: MORPHINE 2 MG/1 ML SYRINGE IV PRN (22:05)
[2021-02-13] MEDS: SODIUM CHLORIDE 0.9% 1,000 ML IV SCH ×2 (01:07→05:42)
[2021-02-13 05:42] LABS: Basophils % 0.4 % (0.0-0.8); Eosinophils # 0.3 10*3/uL (0.0-0.87); Eosinophils % 3.7 % (0.00-10.9); Hematocrit 33.8 VOL% (35.7-47.0); Immature Granulocytes % 0.4 %; Immature Granulocytes Absolute 0.03 #; Lymphocytes % 13.6 % (21.3-54.2); Mean Corpuscular HGB Conc 31.7 GM/DL (32-36); Mean Corpuscular Volume 89.2 FL (87-102); Mean Platelet Volume 9.8 FL (9.6-12.0); Monocytes % 10.7 % (1.7-12.7); Neutrophils % 71.2 % (38.7-73.9); Platelet Count 130 T/CUMM (130-400); Red Cell Distribution Width 14.4 % (9.3-17.3); White Blood Count 7.2 T/CUMM (4-12)
[2021-02-13 05:44] LABS: Hemoglobin 10.7 GM/DL (12.0-16.0); Red Blood Count 3.79 MC/CUMM (3.8-5.5)
[2021-02-13] MEDS: MORPHINE 2 MG/1 ML SYRINGE IV PRN (05:44)
[2021-02-13] MEDS: INSULIN REGULAR 100 UNIT/ML SUBCUT SCH (08:13)
[2021-02-13] MEDS: INSULIN LISPRO 100 UNIT/ML SUBCUT SCH (08:14)
[2021-02-13] MEDS: GABAPENTIN 300 MG CAPSULE PO SCH (08:51)
[2021-02-13] MEDS: ASPIRIN EC 81 MG TABLET PO SCH (08:51)
[2021-02-13] MEDS: MAGNESIUM OXIDE 400 MG TABLET PO SCH (08:51)
[2021-02-13] MEDS: sitaGLIPtin 100 MG TABLET PO SCH (08:51)
[2021-02-13] MEDS: CLOPIDOGREL 75 MG TABLET PO SCH (08:51)
[2021-02-13] MEDS: DOCUSATE SODIUM 100 MG CAPSULE PO SCH (08:51)
[2021-02-13] MEDS: CIPROFLOXACIN 500 MG TABLET PO SCH (08:51)
[2021-02-13] MEDS: ROSUVASTATIN 10 MG TABLET PO SCH (08:51)
[2021-02-13] MEDS: METOPROLOL SUCCINATE XL 25 MG TABLET PO SCH (08:52)
[2021-02-13 11:28] VITALS: BP 165/91
[2021-02-16] MEDS ORDERED: ERGOCALCIFEROL 50,000 UNIT CAPSULE PO SCH (09:00)
== END 2021-02-13 11:31 | disposition swing bed (61) | DRG 470 ==
LOC: N.OR 05:27 → N.SDSINP 05:30 → EDSTATUS 07:30 → N.3E 13:00
PROVIDERS: ADMIT Orthopaedic Surgery; ATTEND Orthopaedic Surgery

== ENCOUNTER 2022-04-14 11:19 | Observation (INO) ==
[2022-04-14] MEDS ORDERED: ASPIRIN 325 MG TABLET PO STA (11:34)
[2022-04-14] MEDS ORDERED: PROMETHAZINE 25 MG/1 ML VIAL IM STA (11:35)
[2022-04-14] MEDS ORDERED: diphenhydrAMINE 50 MG/1 ML VIAL IV STA (11:35)
[2022-04-14] MEDS ORDERED: METOPROLOL TARTRATE 5 MG/5 ML VIAL IV STA ×2 (11:37→12:58)
[2022-04-14 11:48] LABS: Basophils % 0.6 % (0.0-0.8); Eosinophils # 0.1 10*3/uL (0.0-0.87); Eosinophils % 2.1 % (0.00-10.9); Hemoglobin 10.6 GM/DL (12.0-16.0); Immature Granulocytes % 0.4 %; Immature Granulocytes Absolute 0.02 #; Lymphocytes # 1.1 10*3/uL (1.4-4.0); Lymphocytes % 20.7 % (21.3-54.2); Mean Corpuscular HGB Conc 35.3 GM/DL (32-36); Mean Corpuscular Volume 86.5 FL (87-102); Mean Platelet Volume 9.6 FL (9.6-12.0); Monocytes # 0.4 10*3/uL (0.11-0.8); Monocytes % 7.8 % (1.7-12.7); Neutrophils % 68.4 % (38.7-73.9); Platelet Count 182 T/CUMM (130-400); Red Blood Count 3.47 MC/CUMM (3.8-5.5); Red Cell Distribution Width 13.2 % (9.3-17.3); White Blood Count 5.3 T/CUMM (4-12)
[2022-04-14 11:59] LABS: INR 0.9; PT Patient Result 9.7 SECS (10.1-12.1); Partial Thromboplastin Time 21.9 SECS (23.7-32.9)
[2022-04-14 12:10] LABS: Albumin 2.9 G/DL (3.4-5.0); Bilirubin,Total 0.4 MG/DL (0.20-1.00); Calcium 8.5 MG/DL (8.5-10.1); Osmolality,Calculated 297.3 MOS/KG (273-304); Potassium 3.7 MMOL/L (3.5-5.1); Total Protein 6.7 G/DL (6.4-8.2)
[2022-04-14] MEDS ORDERED: LABETALOL 20 MG/4 ML SYRINGE IV STA (12:55)
[2022-04-14] MEDS ORDERED: hydrALAZINE 20 MG/1 ML VIAL IV STA (12:55)
[2022-04-14 13:09] LABS: Barbiturates Screen,Urine Negative (Negative); Benzodiazepines Screen,Urine Negative (Negative); Cannabinoid Screen,Urine Negative (Negative); Opiate Screen,Urine Negative (Negative); Phencyclidine Screen,Urine Negative (Negative)
[2022-04-14] MEDS ORDERED: GLUCAGON 1 MG VIAL IM PRN (13:43)
[2022-04-14] MEDS ORDERED: hydrALAZINE 20 MG/1 ML VIAL IV PRN (13:43)
[2022-04-14] MEDS ORDERED: DOCUSATE SODIUM 100 MG CAPSULE PO PRN (13:43)
[2022-04-14] MEDS ORDERED: ONDANSETRON 4 MG/2 ML VIAL IV PRN (13:43)
[2022-04-14] MEDS ORDERED: ALUMINUM/MAGNES/SIMETH MAX STR 30 ML UDCUP PO PRN (13:43)
[2022-04-14] MEDS ORDERED: ACETAMINOPHEN 325 MG TABLET PO PRN (13:43)
[2022-04-14] MEDS ORDERED: LACTULOSE 20 GM/30 ML UDCUP PO PRN (13:43)
[2022-04-14] MEDS ORDERED: DEXTROSE 10% 250 ML BAG IV PRN (13:59)
[2022-04-14] MEDS ORDERED: NITROGLYCERIN SL 0.4 MG TABLET SL PRN (14:10)
[2022-04-14] MEDS ORDERED: ENOXAPARIN 40 MG/0.4 ML SYRINGE SUBCUT SCH (15:00)
[2022-04-14] MEDS: METOPROLOL SUCCINATE XL 25 MG TABLET PO SCH (15:17)
[2022-04-14] MEDS: lisinopriL 10 MG TABLET PO SCH (15:17)
[2022-04-14] MEDS: amLODIPine 10 MG TABLET PO SCH (15:17)
[2022-04-14] MEDS: INSULIN LISPRO 100 UNIT/ML SUBCUT SCH (16:36)
[2022-04-14] MEDS ORDERED: ROSUVASTATIN 10 MG TABLET PO SCH (21:00)
[2022-04-14] MEDS ORDERED: INSULIN GLARGINE 100 UNIT/ML SUBCUT SCH (21:00)
[2022-04-15 04:57] LABS: Basophils % 0.9 % (0.0-0.8); Eosinophils # 0.2 10*3/uL (0.0-0.87); Eosinophils % 3.6 % (0.00-10.9); Hematocrit 28.8 VOL% (35.7-47.0); Hemoglobin 9.6 GM/DL (12.0-16.0); Immature Granulocytes % 0.2 %; Immature Granulocytes Absolute 0.01 #; Lymphocytes # 1.2 10*3/uL (1.4-4.0); Lymphocytes % 25.1 % (21.3-54.2); Mean Corpuscular HGB Conc 33.3 GM/DL (32-36); Mean Corpuscular Volume 91.1 FL (87-102); Mean Platelet Volume 9.5 FL (9.6-12.0); Monocytes # 0.4 10*3/uL (0.11-0.8); Neutrophils % 61.2 % (38.7-73.9); Platelet Count 171 T/CUMM (130-400); Red Blood Count 3.16 MC/CUMM (3.8-5.5); Red Cell Distribution Width 13.5 % (9.3-17.3); White Blood Count 4.7 T/CUMM (4-12)
[2022-04-15 05:26] LABS: Alanine Aminotransferase 14 U/L (13-56); Albumin 2.6 G/DL (3.4-5.0); Alkaline Phosphatase 100 U/L (45-117); Aspartate Amino Transferase 14 U/L (0-37); Bilirubin,Total < 0.39 MG/DL (0.20-1.00); Blood Urea Nitrogen 37 MG/DL (7-18); Calcium 8.4 MG/DL (8.5-10.1); Carbon Dioxide 26 MMOL/L (21-32); Chloride 108 MMOL/L (98-107); Cholesterol 242 MG/DL (50-200); Glucose 239 MG/DL (74-106); HDL Cholesterol 44 MG/DL (40-60); Osmolality,Calculated 293.5 MOS/KG (273-304); Potassium 3.7 MMOL/L (3.5-5.1); Sodium 139 MMOL/L (136-145); Thyroid Stimulating Hormone 0.886 uIU/ml (0.358-3.74); Total Protein 6.3 G/DL (6.4-8.2); Triglycerides 378 MG/DL (2-150); VLDL Cholesterol 75.6 MG/DL
[2022-04-15] MEDS: amLODIPine 10 MG TABLET PO SCH (08:27)
[2022-04-15] MEDS: METOPROLOL SUCCINATE XL 25 MG TABLET PO SCH (08:28)
[2022-04-15] MEDS: lisinopriL 10 MG TABLET PO SCH (08:28)
[2022-04-15] MEDS: INSULIN LISPRO 100 UNIT/ML SUBCUT SCH ×2 (08:29→12:42)
[2022-04-15] MEDS ORDERED: sitaGLIPtin 100 MG TABLET PO SCH (09:00)
[2022-04-15] MEDS ORDERED: PANTOPRAZOLE 40 MG TABLET PO SCH (09:00)
[2022-04-15] MEDS ORDERED: CLOPIDOGREL 75 MG TABLET PO SCH (09:00)
[2022-04-15] MEDS ORDERED: ASPIRIN EC 81 MG TABLET PO SCH (09:00)
[2022-04-15] MEDS ORDERED: cefTRIAXone 1,000 MG in SODIUM CHLORIDE 0.9% 100 ML IV SCH (09:30)
[2022-04-15] MEDS ORDERED: FLUTICASONE 50 MCG NASAL SPRAY 16 GM BOTTLE BOTH NARES SCH (10:00)
[2022-04-15 11:57] VITALS: BP 159/91
[2022-04-15] MEDS ORDERED: ROSUVASTATIN 20 MG TABLET PO SCH (21:00)
== END 2022-04-15 14:30 | disposition home or self-care (01) ==
LOC: N.EDINP 11:19 → N.ED 11:19 → SUATTDRO 13:43 → N.TELES 14:31
PROVIDERS: ADMIT Internal Medicine; ATTEND Internal Medicine